=== PATIENT | male | born 1980 | race Two or more races ===

== ENCOUNTER 2022-03-01 15:37 | Inpatient (IN) | payer MEDICAID, OTHER, SELFPAY ==
--- NOTE | ~2022-03-01 | XR_ITS ---
EXAMINATION: XR CHEST CLINICAL INFORMATION: Fever COMPARISON: None TECHNIQUE: 2 views of the chest were obtained. FINDINGS: Nodular density superimposing posterior rib and posterior inferior corner of a midthoracic vertebral body only seen on the lateral view measuring approximately 1.2 cm in size. No airspace consolidation, pleural effusion, or pneumothorax. The cardiomediastinal silhouette is within normal limits. No acute osseous injury. XR/XR chest 2V IMPRESSION: 1. No acute pulmonary process. 2. 1.2 cm nodular density projecting over the posterior midlungs only seen on the lateral view. This is likely to represent summation artifact or sclerotic bone lesion versus a true pulmonary nodule. Consider low-dose chest CT for further evaluation.
--- NOTE | ~2022-03-01 | CT_ITS ---
EXAMINATION: CT ANGIOGRAM OF THE CHEST WITH AND WITHOUT CONTRAST (CT PULMONARY ANGIOGRAM FOR PE) CLINICAL INFORMATION: Reason for Exam SOB, fever,elevated d-dimer COMPARISON: Chest radiograph 03/01/2022 TECHNIQUE: Prior to contrast administration, noncontrast localization images were obtained. Subsequently, multidetector volumetric imaging was performed from the thoracic inlet to below the diaphragms following the administration of 85 mL Omnipaque 350 intravenous contrast. No contrast reaction reported Sagittal, coronal, and MIP oblique sagittal reformatted images were obtained on the CT workstation, uploaded to PACS, and reviewed. This CT examination was performed using dose optimization techniques as appropriate, variously including the following: *Automated exposure control *Adjustment of mA and/or kV according to patient size (this includes techniques or standardized protocols for targeted exams where dose is matched to indication/reason for exam; i.e. extremities or head) *Use of iterative reconstruction technique Total exam dose-length product 279 mGy-cm FINDINGS: QUALITY OF STUDY/CONTRAST BOLUS: Suboptimal bolus and marked motion artifact.. PULMONARY ARTERIES: No central or segmental pulmonary emboli. THORACIC AORTA: No aneurysm or dissection. LUNG: No focal consolidation, nodules or masses. PLEURA: No pleural effusion or pneumothorax. MEDIASTINUM: Heart is mildly enlarged. No pericardial effusion. No hilar or mediastinal lymphadenopathy. No evidence of septal bowing or right heart strain. CHEST WALL/AXILLA: No axillary or internal mammary lymphadenopathy. OSSEOUS STRUCTURES: No acute or suspicious osseous abnormality. UPPER ABDOMEN: Unremarkable. No reflux of contrast into the hepatic veins to suggest elevated right heart pressures. CT/CT angio chest PE protocol IMPRESSION: No pulmonary emboli are detected VTE: Negative, but limited exam
[2022-03-01 16:48] VITALS: BP 148/97; PULSE 123; RESP 20; TEMP 38.7; O2SAT 100; BMI 29.4
--- NOTE | 2022-03-01 16:54 | ECG_ITS ---
Test Reason : TACHYCARDIA Blood Pressure : / mmHG Vent. Rate : 092 BPM Atrial Rate : 092 BPM P-R Int : 150 ms QRS Dur : 076 ms QT Int : 340 ms P-R-T Axes : 052 027 031 degrees QTc Int : 420 ms Normal sinus rhythm Normal ECG No previous ECGs available Referred By: Generic ED Physician Electronically Signed By:MELISSA CANTOR MD
[2022-03-01] MEDS: Acetaminophen 325 MG TABLET 650 MG PO (16:56)
[2022-03-01 17:55] VITALS: BP 136/87; PULSE 104; RESP 16; TEMP 36.8; O2SAT 100
[2022-03-01 17:57] LABS: MANUAL DIFF FLAG NO
[2022-03-01 17:59] LABS: Basophils Percent Auto 0.1 % (0-2); Eosinophils Absolute Auto 0.1 X10*3/uL (0.0-0.4); Eosinophils Percent Auto 0.9 % (0-4); Hematocrit 31.5 % (42.0-52.0); Hemoglobin 9.6 g/dl (14.0-18.0); Imm Gran Abs Auto 0.07 X10*3/uL (0.00-0.03); Imm Gran Pct Auto 0.5 % (0.0-0.4); Lymphocytes Absolute Auto 1.5 X10*3/uL (1.2-4.9); Lymphocytes Percent Auto 11.3 % (20-40); Mean Corpuscular HGB Conc 30.5 g/dl (31.0-36.0); Mean Corpuscular Hemoglobin 23.2 pg (27.0-33.0); Mean Corpuscular Volume 76.1 fL (80.0-98.0); Mean Platelet Volume 8.8 fL (9.4-12.4); Monocytes Absolute Auto 1.2 X10*3/uL (0.1-1.2); Monocytes Percent Auto 8.6 % (2-11); Neutrophils Absolute Auto 10.7 x10*3/uL (2.0-8.3); Neutrophils Percent Auto 78.6 % (45-73); Platelet Count 272 X10*3/uL (160-400); Red Blood Count 4.14 X10*6/uL (4.60-5.80); Red Cell Distribution Width 14.3 % (11.0-16.0); White Blood Count 13.6 X10*3/uL (4.8-10.8)
--- NOTE | 2022-03-01 17:59 | ED_ITS ---
HPI - General Adult General Chief complaint: Extremity Injury, Lower Stated complaint: feet,hands and facial swelling Time Seen by Provider: 03/01/22 17:49 Source: patient Mode of arrival: ambulatory History of Present Illness HPI narrative: This is a 41-year-old male who is 2 weeks arrived here in the [facility] from [facility] and reports a history of hypertension, diabetes, hyperlipidemia and states that over the past couple of days he has experienced increasing swelling of bilateral upper and lower lower extremity with pain that has been associated with fevers and chills but he denies any shortness of breath, chest pain/palpitations, nausea/vomiting/abdominal pain/diarrhea, denies any hematemesis or hematochezia, denies any urinary symptoms. Patient denies any unexplained weight loss. Related Data Allergies Allergy/AdvReac Type Severity Reaction Status Date / Time No Known Allergies Allergy Verified 03/01/22 16:48 Review of Systems Review of Systems: Pertinent positives and negatives as stated in the HPI 10 point review of systems is otherwise negative. PMFSH Past Medical History Source: nursing notes reviewed Social History Social History Advance Directives: No Advance Directives Information Provided: No Physical Exam ED Vital Signs: Vital Signs - 24 hr 03/01/22 16:48 03/01/22 17:55 03/01/22 20:34 Temperature 101.7 F H 98.2 F Pulse Rate 123 H 104 H 91 Respiratory Rate 20 16 18 Blood Pressure 148/97 H 136/87 142/96 H Pulse Oximetry 100 100 100 Oxygen Delivery Method Room Air Room Air 03/01/22 23:41 Temperature 97.9 F Pulse Rate 84 Respiratory Rate 16 Blood Pressure 124/79 Pulse Oximetry 94 Oxygen Delivery Method Room Air BMI result Body Mass Index 29.4 VITAL SIGNS: Reviewed. GENERAL: Well developed, well nourished, in no acute distress. HEAD: Normocephalic/atraumatic EYES: PERRLA, EOMI, no scleral icterus EARS: Ext canals without abnormality, TMs non-bulging and non-erythematous NOSE: Nares patent bilateral OROPHARYNX: no oral lesions noted, posterior pharynx clear and non-erythematous without noted tonsillar enlargement/erythema/exudates, no dental caries; there is a noted abscess at the right lower jaw that appears to have pustule at the surface NECK: Supple, no adenopathy LUNGS: Normal breath sounds. No adventitious sounds or accessory muscle use. SpO2<100> CARDIOVASCULAR: Regular rate and rhythm without noted murmurs, no JVD but bilateral nonpitting lower extremity edema involving the ankles and feet ABDOMEN: Soft, non-tender, non-distended with bowel sounds. No rigidity. No guarding. No palpable masses or hernias noted MUSCULOSKELETAL: No tenderness, deformities, or effusions noted on gross inspection. EXTREMITIES: No cyanosis, clubbing or edema; RIGHT UPPER EXTREMITY: There is some form of mass at the medial aspect of patient's right elbow. SKIN: Inspection of the skin reveals raised, non erythematous rash to bilateral upper extremities that appears to be similar to pictures of monkey pox. There does not appear to be any erupted vesicles at this time. NEUROLOGIC: Alert and oriented x 4. Strength and sensation to light touch were grossly intact x 4. Course Course Course Narrative: 1805: 41-year-old male with history and clinical presentation suggestive of infection. 2006: Obtaining HIV (patient is further endorse that he only has sexual relations with females and only 1), STI, chest x-ray with suggestion of neoplastic fracture, will attempt to rehydrate as D-dimer is elevated, patient's history is positive for travel and if able to improved creatinine will proceed with CT angio for PE protocol. Review of all investigations demonstrates leukocytosis with mild anemia (unknown whether not this is new as there is no comparison), LELE with elevated ESR/CRP, procalcitonin-0.56, and hematuria. HIV/STI/hepatitis B evaluation are pending I discussed this case with the inpatient hospitalist who accepts admission. Medical Decision Making Lab Data Result diagrams: 03/01/22 17:53 03/01/22 22:14 Labs: Lab Results 03/01/22 03/01/22 03/01/22 Range/Units 17:52 17:52 17:53 WBC 13.6 H (4.8-10.8) X10*3/uL RBC 4.14 L (4.60-5.80) X10*6/uL Hgb 9.6 L (14.0-18.0) g/dl Hct 31.5 L (42.0-52.0) % MCV 76.1 L (80.0-98.0) fL MCH 23.2 L (27.0-33.0) pg MCHC 30.5 L (31.0-36.0) g/dl RDW 14.3 (11.0-16.0) % Plt Count 272 (160-400) X10*3/uL MPV 8.8 L (9.4-12.4) fL Immature Gran % (Auto) 0.5 H (0.0-0.4) % Neut % (Auto) 78.6 H (45-73) % Lymph % (Auto) 11.3 L (20-40) % Calvert % (Auto) 8.6 (2-11) % Eos % (Auto) 0.9 (0-4) % Baso % (Auto) 0.1 (0-2) % Lymph # (Auto) 1.5 (1.2-4.9) X10*3/uL Calvert # (Auto) 1.2 (0.1-1.2) X10*3/uL Eos # (Auto) 0.1 (0.0-0.4) X10*3/uL Baso # (Auto) 0.0 (0.0-0.2) X10*3/uL Abs Immat Gran (auto) 0.07 H (0.00-0.03) X10*3/uL Absolute Neuts (auto) 10.7 H (2.0-8.3) x10*3/uL Absolute Nucleated RBC 0.000 (0.0-0.012) X10*3/uL Nucleated RBC % (auto) 0.0 (0.0-0.2) /100WBC ESR (0-15) MM/HR D-Dimer High Sensitivty NG/ML Sodium (135-145) mmol/L Potassium (3.3-5.1) mmol/L Chloride (96-108) mmol/L Carbon Dioxide (22-29) mmol/L Anion Gap (12-20) BUN (9-16) mg/dL Creatinine (0.5-1.4) mg/dL Estim Creat Clear Calc Estimated GFR Random Glucose (60-115) mg/dL Lactic Acid 1.0 (0.5-2.0) mmol/L Calcium (8.4-10.2) mg/dL Total Bilirubin (0.0-1.0) mg/dL AST (5-37) U/L ALT (0-40) U/L Alkaline Phosphatase (39-117) U/L C-Reactive Protein (< or = 0.50) mg/dL B-Natriuretic Peptide (<100) pg/mL Total Protein (6.5-8.0) g/dL Albumin (3.5-5.0) g/dL Procalcitonin ng/mL Urine Color Urine Appearance Urine pH (5.0-8.0) Ur Specific Surprise (1.005-1.025) Urine Protein (NEG-TRACE) MG/DL Urine Glucose (UA) (NEG) MG/DL Urine Ketones (NEG) MG/DL Urine Blood (NEG) Urine Nitrite (NEG) Ur Leukocyte Esterase (NEG) Urine RBC (0) /HPF Urine WBC (0-4) /HPF Ur Squamous Epith Cells /LPF Urine Bacteria /LPF COVID-19 (JATINDER) Negative (Negative) COVID-19 Clin Com See Note 03/01/22 03/01/22 03/01/22 Range/Units 17:53 17:53 18:18 WBC (4.8-10.8) X10*3/uL RBC (4.60-5.80) X10*6/uL Hgb (14.0-18.0) g/dl Hct (42.0-52.0) % MCV (80.0-98.0) fL MCH (27.0-33.0) pg MCHC (31.0-36.0) g/dl RDW (11.0-16.0) % Plt Count (160-400) X10*3/uL MPV (9.4-12.4) fL Immature Gran % (Auto) (0.0-0.4) % Neut % (Auto) (45-73) % Lymph % (Auto) (20-40) % Calvert % (Auto) (2-11) % Eos % (Auto) (0-4) % Baso % (Auto) (0-2) % Lymph # (Auto) (1.2-4.9) X10*3/uL Calvert # (Auto) (0.1-1.2) X10*3/uL Eos # (Auto) (0.0-0.4) X10*3/uL Baso # (Auto) (0.0-0.2) X10*3/uL Abs Immat Gran (auto) (0.00-0.03) X10*3/uL Absolute Neuts (auto) (2.0-8.3) x10*3/uL Absolute Nucleated RBC (0.0-0.012) X10*3/uL Nucleated RBC % (auto) (0.0-0.2) /100WBC ESR (0-15) MM/HR D-Dimer High Sensitivty NG/ML Sodium 138 (135-145) mmol/L Potassium 4.7 (3.3-5.1) mmol/L Chloride 107 (96-108) mmol/L Carbon Dioxide 20 L (22-29) mmol/L Anion Gap 16 (12-20) BUN 22 H (9-16) mg/dL Creatinine 1.67 H (0.5-1.4) mg/dL Estim Creat Clear Calc 55.4 Estimated GFR 46 Random Glucose 136 H (60-115) mg/dL Lactic Acid (0.5-2.0) mmol/L Calcium 9.4 (8.4-10.2) mg/dL Total Bilirubin 1.1 H (0.0-1.0) mg/dL AST 22 (5-37) U/L ALT 38 (0-40) U/L Alkaline Phosphatase 69 (39-117) U/L C-Reactive Protein (< or = 0.50) mg/dL B-Natriuretic Peptide 11 (<100) pg/mL Total Protein 7.2 (6.5-8.0) g/dL Albumin 4.2 (3.5-5.0) g/dL Procalcitonin ng/mL Urine Color YELLOW Urine Appearance HAZY Urine pH 5.5 (5.0-8.0) Ur Specific Surprise 1.020 (1.005-1.025) Urine Protein TRACE (NEG-TRACE) MG/DL Urine Glucose (UA) NEG (NEG) MG/DL Urine Ketones NEG (NEG) MG/DL Urine Blood 2+ H (NEG) Urine Nitrite NEG (NEG) Ur Leukocyte Esterase NEG (NEG) Urine RBC 15-29 H (0) /HPF Urine WBC 0 (0-4) /HPF Ur Squamous Epith Cells 1+ /LPF Urine Bacteria 2+ /LPF COVID-19 (JATINDER) (Negative) COVID-19 Clin Com 03/01/22 03/01/22 03/01/22 Range/Units 19:33 22:14 22:14 WBC (4.8-10.8) X10*3/uL RBC (4.60-5.80) X10*6/uL Hgb (14.0-18.0) g/dl Hct (42.0-52.0) % MCV (80.0-98.0) fL MCH (27.0-33.0) pg MCHC (31.0-36.0) g/dl RDW (11.0-16.0) % Plt Count (160-400) X10*3/uL MPV (9.4-12.4) fL Immature Gran % (Auto) (0.0-0.4) % Neut % (Auto) (45-73) % Lymph % (Auto) (20-40) % Calvert % (Auto) (2-11) % Eos % (Auto) (0-4) % Baso % (Auto) (0-2) % Lymph # (Auto) (1.2-4.9) X10*3/uL Calvert # (Auto) (0.1-1.2) X10*3/uL Eos # (Auto) (0.0-0.4) X10*3/uL Baso # (Auto) (0.0-0.2) X10*3/uL Abs Immat Gran (auto) (0.00-0.03) X10*3/uL Absolute Neuts (auto) (2.0-8.3) x10*3/uL Absolute Nucleated RBC (0.0-0.012) X10*3/uL Nucleated RBC % (auto) (0.0-0.2) /100WBC ESR (0-15) MM/HR D-Dimer High Sensitivty 563 NG/ML Sodium 139 (135-145) mmol/L Potassium 4.2 (3.3-5.1) mmol/L Chloride 112 H (96-108) mmol/L Carbon Dioxide 18 L (22-29) mmol/L Anion Gap 13 (12-20) BUN 21 H (9-16) mg/dL Creatinine 1.47 H (0.5-1.4) mg/dL Estim Creat Clear Calc 62.9 Estimated GFR 53 Random Glucose 105 (60-115) mg/dL Lactic Acid (0.5-2.0) mmol/L Calcium 8.0 L D (8.4-10.2) mg/dL Total Bilirubin (0.0-1.0) mg/dL AST (5-37) U/L ALT (0-40) U/L Alkaline Phosphatase (39-117) U/L C-Reactive Protein 18.15 H (< or = 0.50) mg/dL B-Natriuretic Peptide (<100) pg/mL Total Protein (6.5-8.0) g/dL Albumin (3.5-5.0) g/dL Procalcitonin 0.56 ng/mL Urine Color Urine Appearance Urine pH (5.0-8.0) Ur Specific Surprise (1.005-1.025) Urine Protein (NEG-TRACE) MG/DL Urine Glucose (UA) (NEG) MG/DL Urine Ketones (NEG) MG/DL Urine Blood (NEG) Urine Nitrite (NEG) Ur Leukocyte Esterase (NEG) Urine RBC (0) /HPF Urine WBC (0-4) /HPF Ur Squamous Epith Cells /LPF Urine Bacteria /LPF COVID-19 (JATINDER) (Negative) COVID-19 Clin Com 03/02/22 Range/Units 01:08 WBC (4.8-10.8) X10*3/uL RBC (4.60-5.80) X10*6/uL Hgb (14.0-18.0) g/dl Hct (42.0-52.0) % MCV (80.0-98.0) fL MCH (27.0-33.0) pg MCHC (31.0-36.0) g/dl RDW (11.0-16.0) % Plt Count (160-400) X10*3/uL MPV (9.4-12.4) fL Immature Gran % (Auto) (0.0-0.4) % Neut % (Auto) (45-73) % Lymph % (Auto) (20-40) % Calvert % (Auto) (2-11) % Eos % (Auto) (0-4) % Baso % (Auto) (0-2) % Lymph # (Auto) (1.2-4.9) X10*3/uL Calvert # (Auto) (0.1-1.2) X10*3/uL Eos # (Auto) (0.0-0.4) X10*3/uL Baso # (Auto) (0.0-0.2) X10*3/uL Abs Immat Gran (auto) (0.00-0.03) X10*3/uL Absolute Neuts (auto) (2.0-8.3) x10*3/uL Absolute Nucleated RBC (0.0-0.012) X10*3/uL Nucleated RBC % (auto) (0.0-0.2) /100WBC ESR 49 H (0-15) MM/HR D-Dimer High Sensitivty NG/ML Sodium (135-145) mmol/L Potassium (3.3-5.1) mmol/L Chloride (96-108) mmol/L Carbon Dioxide (22-29) mmol/L Anion Gap (12-20) BUN (9-16) mg/dL Creatinine (0.5-1.4) mg/dL Estim Creat Clear Calc Estimated GFR Random Glucose (60-115) mg/dL Lactic Acid (0.5-2.0) mmol/L Calcium (8.4-10.2) mg/dL Total Bilirubin (0.0-1.0) mg/dL AST (5-37) U/L ALT (0-40) U/L Alkaline Phosphatase (39-117) U/L C-Reactive Protein (< or = 0.50) mg/dL B-Natriuretic Peptide (<100) pg/mL Total Protein (6.5-8.0) g/dL Albumin (3.5-5.0) g/dL Procalcitonin ng/mL Urine Color Urine Appearance Urine pH (5.0-8.0) Ur Specific Surprise (1.005-1.025) Urine Protein (NEG-TRACE) MG/DL Urine Glucose (UA) (NEG) MG/DL Urine Ketones (NEG) MG/DL Urine Blood (NEG) Urine Nitrite (NEG) Ur Leukocyte Esterase (NEG) Urine RBC (0) /HPF Urine WBC (0-4) /HPF Ur Squamous Epith Cells /LPF Urine Bacteria /LPF COVID-19 (JATINDER) (Negative) COVID-19 Clin Com ECG Data Attestation: I personally reviewed and interpreted this ECG as follows: Prior ECG tracings: not available for review Interpretation: NSR, HR-92, no STEMI, IL/QRS/QTC are within normal limits. Critical Care Time Critical Care Time Critical Care Time: Yes Total Critical Care Time: 30 Attestation: I personally attest to this time spent taking care of the patient. Discharge Plan Discharge Clinical Impression: Sepsis, LELE (acute kidney injury), Ankle arthralgia, Fever of unknown origin Patient Disposition: Admitted As Inpatient
[2022-03-01 18:17] LABS: COVID-19 Test Negative (Negative)
[2022-03-01 18:22] LABS: Alanine Aminotransferase 38 U/L (0-40); Albumin Level 4.2 g/dL (3.5-5.0); Alkaline Phosphatase 69 U/L (39-117); Anion Gap 16 (12-20); Aspartate Amino Transferase 22 U/L (5-37); Bilirubin Total 1.1 mg/dL (0.0-1.0); Blood Urea Nitrogen 22 mg/dL (9-16); Calcium 9.4 mg/dL (8.4-10.2); Carbon Dioxide 20 mmol/L (22-29); Chloride 107 mmol/L (96-108); Creatinine Clr Calc Pharmacy 55.4; Estimated Glomerular Filt Rate 46; Glucose Random 136 mg/dL (60-115); Potassium 4.7 mmol/L (3.3-5.1); Sodium 138 mmol/L (135-145); Total Protein 7.2 g/dL (6.5-8.0)
[2022-03-01 18:27] LABS: Appearance Urine HAZY; Color Urine YELLOW; Glucose Urine UA NEG (NEG); Leukocyte Esterase Urine NEG (NEG); Nitrite Urine NEG (NEG); PH 5.5 (5.0-8.0); UACC Culture Trigger NO; Urine Blood 2+ (NEG); Urine Ketones NEG (NEG); Urine Protein TRACE MG/DL (NEG-TRACE)
[2022-03-01 18:28] LABS: B Type Natriuretic Peptide 11 pg/mL (<100)
[2022-03-01] MEDS: Piperacillin Sodium/Tazobactam 3.375 GM in 0.9 % Sodium Chloride 50 ML IV (18:31)
[2022-03-01] MEDS: Ketorolac Tromethamine 30 MG/ML VIAL 15 MG IVPUSH (18:31)
[2022-03-01 18:35] LABS: Bacteria Urine 2+ /LPF; Squamous Epithelial Cell Urine 1+ /LPF; WBC Urine 0 /HPF (0-4)
[2022-03-01] MEDS: 0.9 % Sodium Chloride 1,000 ML 999 ML IV ×2 (18:38→20:17)
[2022-03-01 19:53] LABS: D Dimer High Sensitivity 563 NG/ML
[2022-03-01 20:34] VITALS: BP 142/96; PULSE 91; RESP 18; O2SAT 100
[2022-03-01 22:52] LABS: Anion Gap 13 (12-20); Blood Urea Nitrogen 21 mg/dL (9-16); Carbon Dioxide 18 mmol/L (22-29); Chloride 112 mmol/L (96-108); Creatinine Clr Calc Pharmacy 62.9; Estimated Glomerular Filt Rate 53; Glucose Random 105 mg/dL (60-115); Potassium 4.2 mmol/L (3.3-5.1); Sodium 139 mmol/L (135-145)
[2022-03-01 23:41] VITALS: BP 124/79; PULSE 84; RESP 16; TEMP 36.6; O2SAT 94
[2022-03-02] VITALS (8 sets, daily range): BP systolic 111–144; BP diastolic 58–93; PULSE 99–118; RESP 14–18; TEMP 36.7–37.9; O2SAT 98–100
[2022-03-02] MEDS: iohexoL 350 MG/ML 100 ML INFUS..BTL 85 ML IV (00:11)
[2022-03-02 01:21] LABS: Procalcitonin 0.56 ng/mL
[2022-03-02 01:31] LABS: C Reactive Protein 18.15 mg/dL (< or = 0.50)
[2022-03-02 01:44] LABS: Erythrocyte Sedimentation Rate 49 MM/HR (0-15)
[2022-03-02 02:25] LABS: CT PCR NOT DETECTED (Not Detect.); NG PCR NOT DETECTED (Not Detect.)
--- NOTE | 2022-03-02 03:04 | PC.NURSE ---
Addendum entered by Akash Mccurdy 03/02/22 03:25: Pt showed this RN a package of prednisolone and states he took (2) 5 mg tabs daily. 10mg prednisolone and an unknown dose of diclofenac Original Note: pt states that he takes 2 pills daily. Diclofenac and allpurinol but is unable to recall his prescibed dosage. No pharmacy link as pt received these prescriptions outside of the
--- NOTE | 2022-03-02 03:51 | PC.NURSE ---
pt given a ham sandwich, crackers and olivia sherry
--- NOTE | 2022-03-02 05:29 | PM.IMHP ---
History of Present Illness Date of Service: 03/02/22 Chief Complaint: fever, leg swelling, feet and hand pain this is a 41-year-old male with past medical history of diabetes for the the hospital with multiple complaints. Patient reports that he came from [facility] about 2 weeks ago, about 2 days ago he started having bilateral symmetrical pain in his hands and legs, he also reports fever, as well as swelling in his hands and legs. He reports a rash/ lump like on his face, not the rest of his body, non itching. He has no nausea or vomiting, denies any chest pain, no diarrhea constipation, no urinary symptoms and no Numbness tingling or weakness in his arms or legs. Patient reports that about 2 weeks ago he has similar episode, he was given 1 dose of prednisolone with no relief of his symptoms. On arrival to the ED patient noted to have a fever of 101.7, heart rate of 123, otherwise stable Labs are significant for WBC count of 13.6, hemoglobin of 9.6, hematocrit of 31.5, ESR 49, BUN of 21, creatinine of 1.47 with no previous for comparison, CRP of 18, UA negative, COVID-19 negative, hepatitis panel HIV panel pending. N. gonorrhea negative. chest x-ray/CT angiogram has artifact but shows no PE or significant abnormality Given the fever, polyarthralgia and swelling patient will be admitted for further management Review of Systems Review of Systems: Yes all other systems are reviewed and are negative [facility] Medical History (Updated 03/02/22 @ 05:54 by Dangelo Hines MD) Diabetes Hyperlipidemia Hypertension Family History (Updated 03/02/22 @ 05:57 by Dangelo Hines MD) Other No family history of coronary artery disease Surgical History (Updated 03/02/22 @ 05:54 by Dangelo Hines MD) No pertinent past surgical history Social History (Updated 03/02/22 @ 05:57 by Dangelo Hines MD) Alcohol intake: current Patient Tobacco Use Status: Never used Tobacco Use of substances other than those prescribed or required for medical reasons: No Advance Directives: No Advance Directives Information Provided: No Meds Allergies Allergy/AdvReac Type Severity Reaction Status Date / Time No Known Allergies Allergy Verified 03/01/22 16:48 Home Medications Medication Instructions Recorded Confirmed Last Taken Type prednisolone 5 mg tablet 10 mg PO DAILY 03/02/22 03/02/22 Unknown History Physical Exam Vital Signs and Narrative: Vital Signs: Last Vital Signs Temp 98.4 F 03/02/22 05:01 Pulse 107 H 03/02/22 05:01 Resp 18 03/02/22 05:01 BP 126/85 03/02/22 05:01 Pulse Ox 100 03/02/22 05:01 O2 Del Method 03/02/22 05:01 BMI result Body Mass Index 29.4 Const: General: cooperative and no acute distress Orientation/consciousness: patient oriented x3 Eyes: General: appearance normal, both eyes and all related structures Resp: Effort & Inspection: normal respiratory effort Auscultation: clear to auscultation bilaterally Cardio: Rate: regular rate Rhythm: regular rhythm GI: Palpation (GI): Soft to palpation Auscultation: normal bowel sounds Skin: Other: no mucosal lesions, has 1 lump on it face around his mouth, no lesions in the rest of his body no rash. Neuro: General: patient oriented x3 Cognition (Neuro): normal cognition Extrem: Other: has bilateral pitting edema in hands and feet Results Labs CBC and Chem 7: 03/01/22 17:53 03/01/22 22:14 Labs: Laboratory Results - last 24 hr 03/01/22 03/01/22 03/01/22 17:52 17:52 17:53 MCV 76.1 L MCH 23.2 L MCHC 30.5 L RDW 14.3 Plt Count 272 MPV 8.8 L Immature Gran % (Auto) 0.5 H Neut % (Auto) 78.6 H Lymph % (Auto) 11.3 L Mcdonald % (Auto) 8.6 Eos % (Auto) 0.9 Baso % (Auto) 0.1 Lymph # (Auto) 1.5 Mcdonald # (Auto) 1.2 Eos # (Auto) 0.1 Baso # (Auto) 0.0 Abs Immat Gran (auto) 0.07 H Absolute Neuts (auto) 10.7 H Absolute Nucleated RBC 0.000 Nucleated RBC % (auto) 0.0 ESR D-Dimer High Sensitivty Anion Gap Estim Creat Clear Calc Estimated GFR Random Glucose Lactic Acid 1.0 Calcium Total Bilirubin AST ALT Alkaline Phosphatase C-Reactive Protein B-Natriuretic Peptide Total Protein Albumin Procalcitonin Urine Color Urine Appearance Urine pH Ur Specific [place] Urine Protein Urine Glucose (UA) Urine Ketones Urine Blood Urine Nitrite Ur Leukocyte Esterase Urine RBC Urine WBC Ur Squamous Epith Cells Urine Bacteria Chlam trachomat DNA PCR COVID-19 (JATINDER) Negative COVID-19 Clin Com See Note N.gonorrhoeae DNA (PCR) 03/01/22 03/01/22 03/01/22 17:53 17:53 18:18 MCV MCH MCHC RDW Plt Count MPV Immature Gran % (Auto) Neut % (Auto) Lymph % (Auto) Mcdonald % (Auto) Eos % (Auto) Baso % (Auto) Lymph # (Auto) Mcdonald # (Auto) Eos # (Auto) Baso # (Auto) Abs Immat Gran (auto) Absolute Neuts (auto) Absolute Nucleated RBC Nucleated RBC % (auto) ESR D-Dimer High Sensitivty Anion Gap 16 Estim Creat Clear Calc 55.4 Estimated GFR 46 Random Glucose 136 H Lactic Acid Calcium 9.4 Total Bilirubin 1.1 H AST 22 ALT 38 Alkaline Phosphatase 69 C-Reactive Protein B-Natriuretic Peptide 11 Total Protein 7.2 Albumin 4.2 Procalcitonin Urine Color Urine Appearance Urine pH Ur Specific [place] Urine Protein Urine Glucose (UA) Urine Ketones Urine Blood Urine Nitrite Ur Leukocyte Esterase Urine RBC Urine WBC Ur Squamous Epith Cells Urine Bacteria Chlam trachomat DNA PCR NOT DETECTED COVID-19 (JATINDER) COVID-19 Clin Com N.gonorrhoeae DNA (PCR) NOT DETECTED 03/01/22 03/01/22 03/01/22 18:18 19:33 22:14 MCV MCH MCHC RDW Plt Count MPV Immature Gran % (Auto) Neut % (Auto) Lymph % (Auto) Mcdonald % (Auto) Eos % (Auto) Baso % (Auto) Lymph # (Auto) Mcdonald # (Auto) Eos # (Auto) Baso # (Auto) Abs Immat Gran (auto) Absolute Neuts (auto) Absolute Nucleated RBC Nucleated RBC % (auto) ESR D-Dimer High Sensitivty 563 Anion Gap 13 Estim Creat Clear Calc 62.9 Estimated GFR 53 Random Glucose 105 Lactic Acid Calcium 8.0 L D Total Bilirubin AST ALT Alkaline Phosphatase C-Reactive Protein 18.15 H B-Natriuretic Peptide Total Protein Albumin Procalcitonin Urine Color YELLOW Urine Appearance HAZY Urine pH 5.5 Ur Specific [place] 1.020 Urine Protein TRACE Urine Glucose (UA) NEG Urine Ketones NEG Urine Blood 2+ H Urine Nitrite NEG Ur Leukocyte Esterase NEG Urine RBC 15-29 H Urine WBC 0 Ur Squamous Epith Cells 1+ Urine Bacteria 2+ Chlam trachomat DNA PCR COVID-19 (JATINDER) COVID-19 Clin Com N.gonorrhoeae DNA (PCR) 03/01/22 03/02/22 22:14 01:08 MCV MCH MCHC RDW Plt Count MPV Immature Gran % (Auto) Neut % (Auto) Lymph % (Auto) Mcdonald % (Auto) Eos % (Auto) Baso % (Auto) Lymph # (Auto) Mcdonald # (Auto) Eos # (Auto) Baso # (Auto) Abs Immat Gran (auto) Absolute Neuts (auto) Absolute Nucleated RBC Nucleated RBC % (auto) ESR 49 H D-Dimer High Sensitivty Anion Gap Estim Creat Clear Calc Estimated GFR Random Glucose Lactic Acid Calcium Total Bilirubin AST ALT Alkaline Phosphatase C-Reactive Protein B-Natriuretic Peptide Total Protein Albumin Procalcitonin 0.56 Urine Color Urine Appearance Urine pH Ur Specific [place] Urine Protein Urine Glucose (UA) Urine Ketones Urine Blood Urine Nitrite Ur Leukocyte Esterase Urine RBC Urine WBC Ur Squamous Epith Cells Urine Bacteria Chlam trachomat DNA PCR COVID-19 (JATINDER) COVID-19 Clin Com N.gonorrhoeae DNA (PCR) Imaging Radiologist's Impressions: Impressions Chest X-Ray 03/01/22 17:25 IMPRESSION: 1. No acute pulmonary process. 2. 1.2 cm nodular density projecting over the posterior midlungs only seen on the lateral view. This is likely to represent summation artifact or sclerotic bone lesion versus a true pulmonary nodule. Consider low-dose chest CT for further evaluation. Chest CTA 03/02/22 00:05 IMPRESSION: No pulmonary emboli are detected VTE: Negative, but limited exam Assessment and Plan (1) Sepsis: Status: Acute (2) LELE (acute kidney injury): Status: Acute (3) Polyarthralgia: Status: Acute (4) Fever of unknown origin: Status: Acute Plan 41-year-old male with past medical history of hypertension, diabetes, hyperlipidemia presents to the hospital with complaints of bilateral pain in his hands and legs, fever # sepsis - although patient meets sepsis criteria with fever, tachycardia, leukocytosis, at this time we have no source - will treat with broad-spectrum antibiotics until final cultures - chest x-ray shows no evidence of pneumonia - UA negative - hepatitis panel pending - infectious Disease consulted # serum sickness like reaction - patient has fever, symmetrical polyarthralgia as well as edema lower extremity and hands - no evidence of rash /lesions - no other symptoms including no nausea or vomiting - hepatitis-B panel pending - STI/ HIV pending - will treat with IV antibiotics pending final cultures # LELE - unknown baseline - will treat with IV fluids - follow BMP # febrile - unknown etiology - Tylenol p.r.n. - follow cultures # diabetes - patient reports that he has not been taking any of his medications for his chronic medical issues - will treat him with low-dose sliding scale insulin - diabetic diet # hypertension - stable - not on any antihypertensives DVT prophylaxis: Lovenox given the sepsis like presentation, LELE, requirement for further evaluation patient will require minimum 2 night hospital stay for further management Quality Stroke Does the patient have a stroke diagnosis?: No VTE Prior VTE?: No VTE Risk Level:: Medical - moderate - high VTE Device Contraindication: Treatment Not Indicated VTE Drug Contraindication: N/A - Med Ordered
[2022-03-02 06:24] LABS: MANUAL DIFF FLAG NO
[2022-03-02 06:25] LABS: Basophils Percent Auto 0.1 % (0-2); Eosinophils Absolute Auto 0.1 X10*3/uL (0.0-0.4); Eosinophils Percent Auto 1.2 % (0-4); Hematocrit 27.6 % (42.0-52.0); Hemoglobin 8.6 g/dl (14.0-18.0); Imm Gran Abs Auto 0.05 X10*3/uL (0.00-0.03); Imm Gran Pct Auto 0.5 % (0.0-0.4); Lymphocytes Percent Auto 9.4 % (20-40); Mean Corpuscular HGB Conc 31.2 g/dl (31.0-36.0); Mean Corpuscular Hemoglobin 23.8 pg (27.0-33.0); Mean Corpuscular Volume 76.2 fL (80.0-98.0); Monocytes Absolute Auto 0.9 X10*3/uL (0.1-1.2); Neutrophils Absolute Auto 8.9 x10*3/uL (2.0-8.3); Neutrophils Percent Auto 80.8 % (45-73); Platelet Count 248 X10*3/uL (160-400); Red Blood Count 3.62 X10*6/uL (4.60-5.80); Red Cell Distribution Width 14.2 % (11.0-16.0)
[2022-03-02] MEDS: Piperacillin Sodium/Tazobactam 3.375 GM in 0.9 % Sodium Chloride 50 ML IV ×4 (06:25→23:47)
[2022-03-02] MEDS: Enoxaparin Sodium 40 MG/0.4 ML SYRINGE SUBCUT (06:35)
[2022-03-02] MEDS: Acetaminophen 325 MG TABLET 650 MG PO ×2 (06:39→12:32)
[2022-03-02 06:41] LABS: Anion Gap 12 (12-20); Blood Urea Nitrogen 18 mg/dL (9-16); Carbon Dioxide 19 mmol/L (22-29); Chloride 110 mmol/L (96-108); Creatinine Clr Calc Pharmacy 66.5; Estimated Glomerular Filt Rate 57; Glucose Random 200 mg/dL (60-115); Potassium 4.2 mmol/L (3.3-5.1); Sodium 137 mmol/L (135-145)
--- NOTE | 2022-03-02 06:42 | PC.NURSE ---
pt was told he was ordered a blood thinning medication. pt understandable and agreeable.. upon injection pulled away resulting in a near miss needlestick. pt again was educated and medication was administered. pt c/o pain at site, repeatedly asking if it is bleeding. pt is told no it is not, pt continues to express discomfort. pt reassured and is resting in bed awaiting breakfast
[2022-03-02 07:08] LABS: Glucose, Whole Blood 148 mg/dL (60-115)
[2022-03-02] MEDS: vancomycin HCL 1,500 MG in 0.9 % Sodium Chloride 500 ML 333.33 MG IV (07:09)
--- NOTE | 2022-03-02 07:14 | PC.NURSE ---
Pt resting in stretcher. NAD, talking on his phone. IV vanco provided per order. No insulin coverage needed at this time POCT 148.
[2022-03-02 08:25] LABS: HIV AB/AG Nonreactive (Nonreactive); HIV Num 1 0.06 S/CO (0.00-0.99)
[2022-03-02 08:27] LABS: HBS Num1 1.45 mIU/mL (0-7.99); HBc Num1 0.07 S/CO (0.00-0.79); HBsAGNum1 0.15 S/CO (0.00-0.99); Hepatitis B Core Antibody Nonreactive (Nonreactive); Hepatitis B Surface Antigen Negative (Negative); ~Hepatitis B Surface Antibody NONREACTIVE (Nonreactive)
--- NOTE | 2022-03-02 08:39 | PHA.PROG ---
Admission Date/Time: March 02, 2022 05:24 Indication: OTHER Weight in k.8 kg Adjusted body weight in K.8 [place] body weight in Kg: Obesity Dosing Indication % IBW: Serum Creatinine - Last 168 Hours 03/01/22 03/01/22 03/02/22 17:53 22:14 06:06 Creatinine 1.67 H 1.47 H 1.39 Estimated CrCl and GFR - Last 168 Hours 03/01/22 03/01/22 03/02/22 17:53 22:14 06:06 Estim Creat Clear Calc 55.4 62.9 66.5 Estimated GFR 46 53 57 Vancomycin Loading Dose: 1500 MG Current Vancomycin Dosing Regimen: 750MG Q12H Vancomycin Monitoring using AUC goal of 400 - 600 range with trough as surrogate marker: 462, TROUGH 15.3 Date and Time for next Vancomycin Level to be drawn: DRAW 03/03 @1700 Pharmacist Comments on Vancomycin Plan: Vancomycin dosing will take advantage of [employer] as a clinical decision support tool that uses Bayesian modeling to calculate individual patient's pharmacokinetic parameters and forecast the patient's drug concentration time course with the target goal AUC 24 range of 400 - 600 mg/L/hr.
--- NOTE | 2022-03-02 09:08 | PHA.MEDREC ---
Pharmacy Consult ? Medication Reconciliation Pharmacy has completed the medication reconciliation. spoke with pt regarding meds
[2022-03-02 09:37] LABS: Estimated Average Glucose 157 mg/dL; Hemoglobin A1c % 7.1 %
--- NOTE | 2022-03-02 12:31 | PM.EVENT ---
Event Note Date of Service: 03/02/22 Event Note: Day Attending Brief Note Admitted for fevers and arthralgias. Reporst chronic arthritis. Reports similar history in brother and father. Reports he [place] when pain was severe. Continue antibiotics for now Start prednisone 40mg daily ID consult remainder per H&P
--- NOTE | 2022-03-02 12:42 | MHC.CM.PN ---
Pt reports he is staying with his cousin, Alyse. He has been in [place] for 2 weeks on vacation from [facility]. He reports he is independent at home and community. He does not have a PCP but is able to see an MD at [facility]. No HCP on file, pt was educated on HCP, declined at this time. Pt did not respond to COVID tiago'd. He reports he will need transportation when discharged.
[2022-03-02] MEDS: amLODIPine Besylate 10 MG TABLET PO (13:25)
[2022-03-02] MEDS: predniSONE 20 MG TABLET 40 MG PO (13:25)
[2022-03-02 13:33] LABS: Glucose, Whole Blood 142 mg/dL (60-115)
[2022-03-02] MEDS: 0.9 % Sodium Chloride Flush 3 ML SYRINGE IVFLUSH (16:32)
[2022-03-02] MEDS: Insulin Lispro 100 UNIT/ML 3 ML VIAL SUBCUT ×2 (18:24→21:50)
[2022-03-02 18:33] LABS: Glucose, Whole Blood 376 mg/dL (60-115)
--- NOTE | 2022-03-02 19:10 | PC.NURSE ---
Took report from Lucy to assume care of Pt, Pt resting watching TV, call light in reach, this RN continues to monitor.
[2022-03-02] MEDS: vancomycin HCL 750 MG in 0.9 % Sodium Chloride 250 ML 265 MG IV (19:21)
[2022-03-02 21:22] LABS: Glucose, Whole Blood 385 mg/dL (60-115)
[2022-03-03] VITALS (7 sets, daily range): BP systolic 113–127; BP diastolic 68–84; PULSE 83–104; RESP 14–20; TEMP 36.3–37.1; O2SAT 96–100
[2022-03-03] MEDS: Enoxaparin Sodium 40 MG/0.4 ML SYRINGE SUBCUT (05:28)
[2022-03-03] MEDS: Piperacillin Sodium/Tazobactam 3.375 GM in 0.9 % Sodium Chloride 50 ML IV ×2 (05:28→11:07)
[2022-03-03 07:26] LABS: Creatinine Clr Calc Pharmacy 62.5; Estimated Glomerular Filt Rate 53
[2022-03-03 07:39] LABS: Glucose, Whole Blood 103 mg/dL (60-115)
[2022-03-03] MEDS: vancomycin HCL 750 MG in 0.9 % Sodium Chloride 250 ML 265 MG IV (08:21)
[2022-03-03] MEDS: 0.9 % Sodium Chloride Flush 3 ML SYRINGE IVFLUSH ×3 (08:22→22:04)
--- NOTE | 2022-03-03 08:44 | PC.NURSE ---
Pt is A&Ox4, no complaints of pain at this time, LCA, abd soft, non tender, +BS x 4. Pt ambulates independently w/steady gait. Call patton within reach, report to Shakila on IMC.
--- NOTE | 2022-03-03 08:48 | HE.PHANOTE ---
casandra kaur continue current dose, next trough due @1700
[2022-03-03] MEDS: predniSONE 20 MG TABLET 40 MG PO (09:51)
[2022-03-03] MEDS: amLODIPine Besylate 10 MG TABLET PO (09:51)
[2022-03-03 11:26] LABS: Glucose, Whole Blood 190 mg/dL (60-115)
[2022-03-03] MEDS: Insulin Lispro 100 UNIT/ML 3 ML VIAL SUBCUT ×3 (12:11→22:03)
--- NOTE | 2022-03-03 15:10 | W.PM.IDCN ---
History of Present Illness Data of Consult Service Date: 03/03/22 Requesting physician: Erick Griffith Primary Care Provider: [facility] Reason for consult: fever and arthralgias He presents with weakness and arthralgias bilateral hips and some right leg as wellas right facial and arm swelling for aweek He had febrile episodes about once a day. He gets sweats also. Review of Systems Review of Systems: Yes all other systems are reviewed and are negative [facility] Past Medical History Medical History Diabetes Hyperlipidemia Hypertension Family History Family History Other No family history of coronary artery disease Surgical History Surgical History No pertinent past surgical history Social History Social History Household Members: Family Housing: House Do you presently have visiting nurse or other home services: No Alcohol intake: current Patient Tobacco Use Status: Never used Tobacco service: No Current occupational status: other Meds Allergies Allergy/AdvReac Type Severity Reaction Status Date / Time No Known Allergies Allergy Verified 03/01/22 16:48 Active Medications: Current Medications Acetaminophen (Acetaminophen 325 Mg Tablet) 650 mg PO Q6H PRN PRN Reason: Pain, Mild (Pain Scale 1-3) Last Admin: 03/02/22 12:32 Dose: 650 mg Amlodipine Besylate (Amlodipine Besylate 10 Mg Tablet) 10 mg PO DAILY DOTTIE; Protocol Last Admin: 03/03/22 09:51 Dose: 10 mg Dextrose (Dextrose 50 % 25 Gm/50 Ml Syringe) 25 gm IVPUSH Q15M PRN; Protocol PRN Reason: per Hypoglycemia Standing Ord. Docusate Sodium (Docusate Sodium 100 Mg Capsule) 100 mg PO DAILY PRN PRN Reason: Constipation Enoxaparin Sodium (Enoxaparin Sodium 40 Mg/0.4 Ml Syringe) 40 mg SUBCUT Q24H DOTTIE Last Admin: 03/03/22 05:28 Dose: 40 mg Glucose (Glucose Gel 15 Gm Gel..Gram.) 15 gm PO Q15M PRN; Protocol PRN Reason: per Hypoglycemia Standing Ord. Piperacillin Sod/Tazobactam (Sod 3.375 gm/ Sodium Chloride) 50 mls @ 100 mls/hr IV Q6H [facility] Last Infusion: 03/03/22 12:13 Dose: Infused Vancomycin HCl 750 mg/ Sodium (Chloride) 265 mls @ 265 mls/hr IV Q12H [facility] Last Infusion: 03/03/22 09:34 Dose: Infused Insulin Human Lispro (Insulin Lispro 100 Unit/Ml 3 Ml Vial) 0 unit SUBCUT QIDACHS [facility]; Protocol Last Admin: 03/03/22 12:11 Dose: 2 unit Ondansetron HCl (Ondansetron Hcl 4 Mg/2 Ml Vial) 4 mg IVPUSH Q8H PRN PRN Reason: Nausea and Vomiting Pharmacy Consult (Consult Rx Vancomycin Dosing) 1 each MISCELLANE DAILY PRN PRN Reason: Consult order Prednisone (Prednisone 20 Mg Tablet) 40 mg PO DAILY [facility] Last Admin: 03/03/22 09:51 Dose: 40 mg Sodium Chloride (0.9 % Sodium Chloride Flush 3 Ml Syringe) 3 ml [facility] Last Admin: 03/03/22 08:22 Dose: 3 ml Home Medications Medication Instructions Recorded Confirmed Last Taken Type amlodipine 10 mg tablet 10 mg PO DAILY 03/02/22 03/02/22 Unknown History aspirin 81 mg tablet,delayed 81 mg PO DAILY 03/02/22 03/02/22 Unknown History release diclofenac sodium 100 mg 100 mg PO DAILY 03/02/22 03/02/22 Unknown History tablet,extended release 24 hr metformin 500 mg tablet 500 mg PO DAILY 03/02/22 03/02/22 Unknown History prednisolone 5 mg tablet 10 mg PO DAILY 03/02/22 03/02/22 Unknown History ramipril 10 mg capsule 10 mg PO DAILY 03/02/22 03/02/22 Unknown History vitamin B complex 1 tab PO DAILY 03/02/22 03/02/22 Unknown History Physical Exam Vital Signs: Vital Signs: Last Vital Signs Temp 98.3 F 03/03/22 12:00 Pulse 89 03/03/22 12:00 Resp 18 03/03/22 12:00 BP 125/81 03/03/22 12:00 Pulse Ox 100 03/03/22 12:00 O2 Del Method 03/03/22 12:00 BMI result Body Mass Index 29.4 Const: General: cooperative HEENT: Head: Yes normal to inspection Face and sinus: Yes normal facial exam Mouth: Normal oral and palatal mucosa present Teeth and gingiva: dentition normal Eyes: General: appearance normal, both eyes and all related structures Pupils: Equal, round and reactive pupils present Resp: Effort & Inspection: normal respiratory effort Cardio: Rate: regular rate Rhythm: regular rhythm GI: Palpation (GI): Soft to palpation and nontender : General: Yes no CVA tenderness Back/Spine/Pelvis: Back: no CVA tenderness Skin: General skin exam: no rashes or lesions noted Neuro: General: moves all extremities Cranial nerves: Yes Equal, round and reactive pupils present Extrem: Other: right hip swelling,face also General: Yes normal to inspection Psych: Appearance: grossly normal Results Labs CBC & Chem 7: 03/02/22 06:06 03/03/22 06:34 Labs: BMP 03/03/22 06:34 Creatinine 1.48 H Microbiology Microbiology Results: Microbiology 03/01/22 17:53 Blood - Venous Blood Culture - Preliminary No growth after 24 hours. 03/01/22 17:52 Blood - Venous Blood Culture - Preliminary No growth after 24 hours. Assessment and Plan (1) Polyarthralgia: Status: Acute (2) Fever of unknown origin: Status: Acute This may be acute athralgias such as RA.lupus Unlikely t o be HIV Could be RA Plan use steroids as doing Reumatology No antibiotics at this timerr
--- NOTE | 2022-03-03 16:22 | MHC.CM.PN ---
Per MD, patient is medically cleared for discharge today. Patient will discharge home (Self-care). Taxi voucher provided.
[2022-03-03 16:37] LABS: Glucose, Whole Blood 286 mg/dL (60-115)
[2022-03-03 17:35] LABS: Vancomycin Trough 16.8 mcg/mL (10.0-20.0)
[2022-03-03 20:14] LABS: Glucose, Whole Blood 226 mg/dL (60-115)
[2022-03-03 20:53] LABS: Glucose, Whole Blood 242 mg/dL (60-115)
[2022-03-04 04:00] VITALS: BP 97/69; PULSE 92; RESP 18; TEMP 36.8; O2SAT 97
[2022-03-04 06:57] LABS: Creatinine Clr Calc Pharmacy 78.4; Estimated Glomerular Filt Rate > 60
[2022-03-04 07:25] LABS: Glucose, Whole Blood 103 mg/dL (60-115)
[2022-03-04 08:00] VITALS: BP 142/83; PULSE 84; RESP 20; TEMP 36.2; O2SAT 100
[2022-03-04] MEDS: amLODIPine Besylate 10 MG TABLET PO (09:12)
[2022-03-04] MEDS: predniSONE 20 MG TABLET 40 MG PO (09:12)
[2022-03-04] MEDS: 0.9 % Sodium Chloride Flush 3 ML SYRINGE IVFLUSH (09:13)
[2022-03-04] MEDS: Acetaminophen 325 MG TABLET 650 MG PO (09:20)
--- NOTE | 2022-03-04 10:56 | PM.DS ---
DS: Providers Provider Date of Service: 03/04/22 Date of admission: 03/02/22 05:24 Primary care physician: [facility] Consults: 03/02/22 05:23 Consult to Infectious Diseases Routine Consulting Provider: Linda Wetzel Reason for consultation: febrile, polyarthralgia Has provider been notified: No DS: Diagnosis Discharge Diagnosis (1) Polyarthralgia: Status: Acute (2) SIRS (systemic inflammatory response syndrome): Status: Acute DS: Summary Hospital Course Hospital Course: HPI from admission H&P: 'this is a 41-year-old male with past medical history of diabetes for the the hospital with multiple complaints.? Patient reports that he came from [facility] about 2 weeks ago, about 2 days ago he started having bilateral symmetrical pain in his hands and legs, he also? reports fever, as well as swelling in his hands and legs.? He reports a rash/ lump like on his face, not the rest of his body, non itching.? He has no nausea or vomiting, denies any chest pain, no diarrhea constipation, no urinary symptoms and no ? Numbness tingling or weakness in his arms or legs.? Patient reports that about 2 weeks ago he has similar episode, he was given 1 dose of? prednisolone with no relief of his symptoms. ? On arrival to the ED patient noted to have a fever of 101.7, heart rate of 123, otherwise stable Labs are significant for WBC count of 13.6, hemoglobin of 9.6, hematocrit of 31.5, ESR 49, BUN of 21, creatinine of 1.47 with no previous for comparison, CRP of 18, UA negative, COVID-19 negative, hepatitis panel HIV panel pending. ? N. gonorrhea negative. ?chest x-ray/CT angiogram has artifact but shows no PE or significant abnormality ? Given the fever, polyarthralgia and swelling patient will be admitted for further management' Hospital Course: Patient presented to the hospital polyarthralgia and was found to have a fever. Initially the patient was treated with broad-spectrum IV antibiotics. After a thorough history, the patient reported that he his brother as well as father all a diagnosis of arthritis he is unsure what it is. He reports high fevers diffuse joint pains when he has a flare. He reports that during these times he takes a small dose of prednisone with resolution his symptoms. With this history, he was initiated on prednisone and had immediate resolution his pain. He had no further fevers. His blood cultures are negative. Infectious Disease was consulted and in agreement with the outlined treatment plan. He will be referred to a medical care evaluation specialist for formal testing, although it is unclear how long who will be in the [facility]. He has been recommended to follow-up with a specialist should he moved back to [facility] Time Spent with Patient Time attestation: Total time spent providing and/or coordinating discharge services: Discharge coordination time: Greater than 30 minutes Quality: Safe Use of Opioids Does Pt have an Active Cancer Diagnosis on the Problem List?: No Quality: Stroke Does the patient have a stroke diagnosis?: No Physical Exam Vital Signs: Vital Signs: Last Vital Signs Temp 97.2 F 03/04/22 08:00 Pulse 84 03/04/22 08:00 Resp 20 03/04/22 08:00 BP 142/83 H 03/04/22 08:00 Pulse Ox 100 03/04/22 08:00 O2 Del Method 03/04/22 08:00 BMI result Body Mass Index 29.4 Const: Other: General - no acute distress, appears comfortable Cardiovascular - regular rate and rhythm, S1-S2 Lungs - normal respiratory effort, clear to auscultation bilaterally, no wheezing Abdomen - soft, nontender, no rebound or guarding Extremities - no edema bilaterally Neuro - awake and alert, no focal deficits Joints - improved swelling in his bilateral hands; DS: Data Data Completed and Pending Labs on day of discharge: Laboratory Results - last 24 hr 03/03/22 03/03/22 03/03/22 11:09 15:14 16:33 Creatinine Estim Creat Clear Calc Estimated GFR POC Glucose 190 H 226 H 286 H Vancomycin Trough 03/03/22 03/03/22 03/04/22 16:42 20:48 05:54 Creatinine 1.18 Estim Creat Clear Calc 78.4 Estimated GFR > 60 POC Glucose 242 H Vancomycin Trough 16.8 03/04/22 07:13 Creatinine Estim Creat Clear Calc Estimated GFR POC Glucose 103 Vancomycin Trough Preliminary micro results at discharge 03/01/22 17:53 Blood Culture - Preliminary Blood - Venous No growth after 48 hours. 03/01/22 17:52 Blood Culture - Preliminary Blood - Venous No growth after 48 hours. Discharge Plan Discharge Patient Disposition: Home, Self-Care Discharge Diagnosis: Arthritis Referrals: [facility] [Primary Care Provider] - 1 Week Faizan Leonardo MD [Physician] - 1 Week (Call for appointment) Discharge Medications: New prednisone 20 mg Tablet 40 mg PO DAILY Qty: 10 0RF Continued metformin 500 mg Tablet 500 mg PO DAILY aspirin 81 mg Tablet,Delayed Release (Dr/Ec) 81 mg PO DAILY amlodipine 10 mg Tablet 10 mg PO DAILY vitamin B complex Tablet 1 tab PO DAILY ramipril 10 mg Capsule 10 mg PO DAILY prednisolone 5 mg Tablet 10 mg PO DAILY Qty: 60 0RF diclofenac sodium 100 mg Tablet Extended Release 24 Hr 100 mg PO DAILY Qty: 30 0RF Discharge Orders: Discharge Order (Routine); Ordered 03/04/22 Ordered By: Erick Griffith Diet: Advance to usual diet Activity on Discharge: As tolerated Stand Alone Forms: Patient Portal Discharge page Care Plan Goals: To stay healthy and out of the hospital. Health Concerns: Polyarthralgia and arthritis Plan of Treatment: Take 40 mg of prednisone for 5 more days. After this resume your prednisolone as you were taking before. Assessment: see d/c summary
--- NOTE | 2022-03-04 11:14 | MHC.CM.PN ---
Patient has been medically cleared for dc to home today, self care.
[2022-03-04] MEDS: Insulin Lispro 100 UNIT/ML 3 ML VIAL SUBCUT (11:52)
[2022-03-04 11:59] LABS: Glucose, Whole Blood 350 mg/dL (60-115)
--- NOTE | 2022-03-04 12:32 | MHC.CM.PN ---
CM has provided Patient's RN with a taxi voucher for transport home.
--- NOTE | 2022-03-04 14:52 | MHC.CM.PN ---
was informed that [facility] was unable to provide transport. Material Handler 2Nd Shift called [facility] to inquire and was told that they would do everything possible to accommodate this trip.
--- NOTE | 2022-03-04 15:45 | MHC.CM.PN ---
CM returned a call to Patient at [phone] to provide him with his new [employer] #; he was at his pharmacy, picking up his prescriptions.
== END 2022-03-04 13:30 | disposition home or self-care (01) | DRG 351 ==
LOC: HO.ED 03-02 02:01 → HO.EDOVER 03-02 05:53 → HO.IMC 03-03 07:47
PROVIDERS: Internal Medicine; Admitting Provider Internal Medicine; Emergency Provider Student in an Organized Health Care Education/Training Program; Visit Provider Family Medicine
DX: M19.90 Unspecified osteoarthritis, unspecified site (principal); N17.9 Acute kidney failure, unspecified; R65.10 Systemic inflammatory response syndrome (SIRS) of non-infectious origin without acute organ dysfunction; E78.5 Hyperlipidemia, unspecified; Z20.822 Contact with and (suspected) exposure to COVID-19; Z79.82 Long term (current) use of aspirin; Z79.84 Long term (current) use of oral hypoglycemic drugs; Z79.899 Other long term (current) drug therapy
CPT/HCPCS: 36415; 71046; 71275; 80048; 80053; 80202; 81001; 82565; 82947; 83036; 83605; 83880; 84145; 85025; 85379; 85652; 86140; 86704; 86706; 87040; 87340; 87389; 87491; 87591; 87635; 93005; 96361; 96365; 96375; 99219; 99285; J1650; J1885; J2543; J3370; Q9967